=== PATIENT | female | born 1990 | race Caucasian/White ===

== ENCOUNTER 2016-12-18 10:30 | Emergency (ER) | payer OTHER ==
[~2016-12-18] VITALS: Ht 160 cm; Wt 58.0 kg
[~2016-12-18 10:30] MED LIST: IBUP600 PO; OXYC1SOL5 PO; PREN1TAB30 PO
[2016-12-18 10:36] VITALS: BP 110/69; PULSE 84; RESP 16; TEMP 98.5; O2SAT 100
[2016-12-18 10:54] LABS: BLOOD, URINE NEG (NEG); GLUCOSE,URINE NEG (NEG); KETONE, URINE NEG (NEG); NITRITE,URINE NEG (NEG); PH, URINE 5.5 (5.0-8.5)
--- NOTE | 2016-12-18 10:59 | PD ---
HPI Chief Complaint: [employer] Problem/Complaint Time Seen by Provider: 10:58 Travel History International Travel<30 days: No Contact w/Intl Traveler<30days: No Traveled to known affect area: No History of Present Illness HPI 26-year-old female came to the emergency room with history of suprapubic pain, discomfort and cramps for past 3 weeks. Denies dysuria, fever or chills. Says she has some vaginal discharge but does not smell foul. She does not think she is although she has been having unprotected sex. And has irregular periods. Vital signs were relatively stable. [facility] Past Medical History Narrative Medical List of her past medical, surgical, social and family history was reviewed from the nursing note. 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 Reported Meds & Prescriptions Reported Meds & Active Scripts Active Macrobid (Nitrofurantoin Monoh/Nitrofur Macro) 100 Mg Cap 100 Mg PO BID 14 Days Reported Erythromycin (Erythromycin Base) 250 Mg Cap 90 Mg PO DAILY Narrative Medication List of her home medications reviewed from the nursing note. Review of Systems Except as stated in HPI: all other systems reviewed are Neg Physical Exam Narrative GENERAL: Awake, alert, no obvious distress SKIN: Focused skin assessment warm/dry. HEAD: Atraumatic. Normocephalic. EYES: Pupils equal and round. No scleral icterus. No injection or drainage. ENT: No nasal bleeding or discharge. Mucous membranes pink and moist. NECK: Trachea midline. No JVD. CARDIOVASCULAR: Regular rate and rhythm. No murmur appreciated. RESPIRATORY: No accessory muscle use. Clear to auscultation. Breath sounds equal bilaterally. GASTROINTESTINAL: Abdomen soft, non-tender, nondistended. Hepatic and splenic margins not palpable. : External inspection was within normal limit. Speculum exam was done and thick whitish discharge. Discharge was not foul-smelling. No CMT or adnexal tenderness. MUSCULOSKELETAL: No obvious deformities. No clubbing. No cyanosis. No edema. NEUROLOGICAL: Awake and alert. No obvious cranial nerve deficits. Motor grossly within normal limits. Normal speech. PSYCHIATRIC: Appropriate mood and affect; insight and judgment normal. Data Data Last Documented VS Orders Urinalysis - C+S If Indicated (12/18/16 10:34) Ed Urine Pregnancytest Poc (12/18/16 10:34) Gc And Chlamydia Pcr (12/18/16 11:10) Wet Prep Profile (12/18/16 11:10) Urine Culture (12/18/16 10:40) Nitrofurantoin Monohyd Macrocr (Macrobid (12/18/16 12:00) Labs [facility] Medical Decision Making Medical Screen Exam Complete: Yes Emergency Medical Condition: Yes Differential Diagnosis Cystitis, STD Narrative Course 11:57 AM given my exam suspicion for STD is low. I'm comfortable discharging her home before the results of back. I have also given her a dose of Macrobid here and prescription to go home with. Procedures EKG Prior to Arrival: No Diagnosis Primary Impression: Cystitis Referrals: Primary Care Physician 2 days Additional Instructions: Please return to the ER if the condition worsen or any other new concerns. Otherwise follow-up with your primary care. Please take the medication as per the prescription direction. Drink lots of fluid and cranberry juice. Med/Other Pt SpecificInfo: Prescription(s) given Scripts Nitrofurantoin Monohydrate Macrocrystals (Macrobid)100 Mg [id number] Mg PO BID 14 Days Ref 0 Prov:Chuyita Whitman MD 12/18/16 Disposition: 01 DISCHARGE HOME Condition: Stable Chuyita Whitman MD Dec 18, 2016 10:59 Urine Leukocyte Esterase TRACE Urine WBC 0-2 /hpf Urine Squamous Epithelial > 8 /hpf Cells Urine Bacteria MOD /hpf Microscopic Urinalysis Comment CULTURE INDICATED Urine Collection Time 10:40 [facility] Medical Decision Making Medical Screen Exam Complete: Yes Emergency Medical Condition: Yes Differential Diagnosis Cystitis, STD Narrative Course 11:57 AM given my exam suspicion for STD is low. I'm comfortable discharging her home before the results of back. I have also given her a dose of Macrobid here and prescription to go home with. Procedures EKG Prior to Arrival: No Diagnosis Primary Impression: Cystitis Referrals: Primary Care Physician 2 days Additional Instructions: Please return to the ER if the condition worsen or any other new concerns. Otherwise follow-up with your primary care. Please take the medication as per the prescription direction. Drink lots of fluid and cranberry juice. Med/Other Pt SpecificInfo: Prescription(s) given Scripts Nitrofurantoin Monohydrate Macrocrystals (Macrobid)100 Mg [id number] Mg PO BID 14 Days Ref 0 Prov:Chuyita Whitman MD 12/18/16 Disposition: 01 DISCHARGE HOME Condition: Stable Chuyita Whitman MD Dec 18, 2016 10:59
[2016-12-18] MEDS ORDERED: ERYT250C12 PO (11:02)
[2016-12-18 11:12] LABS: METHOD OF COLLECTION CLEAN CATCH; URINE COLOR YELLOW (YELLW/STRAW)
[2016-12-18 11:13] LABS: BACTERIA, URINE MOD /hpf; COMMENT (UR) CULTURE INDICATED; CULTURE IF INDICATED CULTURE INDICATED; SQUAMOUS EPITHELIAL CELL URINE > 8 /hpf (0-5); WBC, URINE 0-2 /hpf (0-5)
[2016-12-18] MEDS ORDERED: MACR100C2 PO (11:59)
[2016-12-18] MEDS ORDERED: NITROFURANTOIN MONOHYD MACROCR 100 MG CAP PO ONE (12:00)
[2016-12-18 12:02] VITALS: BP 110/70; PULSE 80; RESP 16; O2SAT 100
[2016-12-18 17:38] LABS: CHLAMYDIA PCR NOT DETECTED (NOT DETECT); NEISSERIA PCR NOT DETECTED (NOT DETECT)
== END 2016-12-18 12:11 | disposition home or self-care (01) ==
LOC: PHED 10:30
DX: N30.90 Cystitis, unspecified without hematuria (principal); N89.8 Other specified noninflammatory disorders of vagina; Z86.59 Personal history of other mental and behavioral disorders
CPT/HCPCS: 81001; 84703; 87086; 87210; 87491; 87591; 99283

== ENCOUNTER 2016-12-24 15:13 | Emergency (ER) | payer OTHER ==
[~2016-12-24] VITALS: Ht 160 cm; Wt 58.2 kg
[~2016-12-24 15:13] MED LIST changes: +ERYT250C12 PO; -IBUP600 PO; +MACR100C2 PO; -OXYC1SOL5 PO; -PREN1TAB30 PO
[2016-12-24 15:18] VITALS: BP 104/75; PULSE 81; RESP 16; TEMP 98.4; O2SAT 96
[2016-12-24] MEDS ORDERED: ORPH100T99 PO (15:58)
[2016-12-24] MEDS ORDERED: IBUP-232 PO (15:58)
--- NOTE | 2016-12-24 15:59 | PD ---
HPI Chief Complaint: Pain: Acute or Chronic Time Seen by Provider: 15:35 Travel History International Travel<30 days: No Contact w/Intl Traveler<30days: No Traveled to known affect area: No History of Present Illness HPI The patient is a 26-year-old female who presents emergency department for back pain. The patient states she was evaluated in the emergency department last week for back pain. The back pain is located in the lower lumbar region, radiates up to the lower thoracic region, is bilateral, worse when she is standing, walking, and picking up her child. Patient states she was evaluated in the emergency department last week and underwent pelvic examination and was prescribed antibiotics. The patient has been taking the nitrofurantoin as directed, however, her back pain persists. She denies any nausea, vomiting, diarrhea, or constipation. The patient denies any current vaginal discharge, is currently on her menstrual cycle. She denies any dysuria , frequency, urgency, or hematuria. The patient denies any history of similar symptoms secondary to her menstrual cycle in the past. The patient does have a history of post fracture in the past which healed without surgical intervention. She denies any radiculopathy down the legs. The patient denies any history of IVDA or dialysis. She does state she had a fever and chills earlier today, fever was high as 101.3. 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 Reported Meds & Prescriptions Reported Meds & Active Scripts Active Orphenadrine CR (Orphenadrine Citrate) 100 Mg Tab 100 Mg PO Q12HR Ibuprofen 600 Mg Tab 600 Mg PO Q6H PRN Macrobid (Nitrofurantoin Monoh/Nitrofur Macro) 100 Mg Cap 100 Mg PO BID 14 Days Reported Erythromycin (Erythromycin Base) 250 Mg Cap 90 Mg PO DAILY Review of Systems Except as stated in HPI: all other systems reviewed are Neg General / Constitutional: Positive: Fever, Chills Cardiovascular: No: Chest Pain or Discomfort Respiratory: No: Shortness of Breath Gastrointestinal: No: Nausea, Vomiting, Diarrhea, Abdominal Pain Genitourinary: No: Urgency, Frequency, Dysuria, Hematuria, Pelvic Pain Musculoskeletal: Positive: Pain (back pain), No: Myalgias, Arthralgias Skin: No Rash Physical Exam Narrative GENERAL: Awake, alert, pleasant 26-year-old female who appears her stated age and is in no acute respiratory distress. SKIN: Focused skin assessment warm/dry. HEAD: Atraumatic. Normocephalic. EYES: Pupils equal and round. No scleral icterus. No injection or drainage. ENT: No nasal bleeding or discharge. Mucous membranes pink and moist. NECK: Trachea midline. No JVD. CARDIOVASCULAR: Regular rate and rhythm. No murmur appreciated. RESPIRATORY: No accessory muscle use. Clear to auscultation. Breath sounds equal bilaterally. GASTROINTESTINAL: Abdomen soft, non-tender, nondistended. Negative Caba's. Negative McBurney's. No suprapubic tenderness. Back: No CVA tenderness. No tenderness of the thoracic or lumbar vertebrae. Mild tenderness of the paravertebral muscles, however, cannot reproduce with rotation, flexion, or extension. MUSCULOSKELETAL: No obvious deformities. No clubbing. No cyanosis. No edema. NEUROLOGICAL: Awake and alert. No obvious cranial nerve deficits. Motor grossly within normal limits. Normal speech. PSYCHIATRIC: Appropriate mood and affect; insight and judgment normal. Data Data Last Documented VS Vital Signs Date Time Temp Pulse Resp B/P Pulse Ox O2 Delivery O2 Flow Rate FiO2 12/24/16 15:53 81 18 12/24/16 15:18 98.4 104/75 96 Orders Urinalysis - C+S If Indicated (12/24/16 15:45) Labs Laboratory Tests Test 12/24/16 15:51 Urine Color STRAW Urine Turbidity CLEAR Urine pH 6.5 Urine Specific [place] 1.005 Urine Protein NEG mg/dL Urine Glucose (UA) NEG mg/dL Urine Ketones NEG mg/dL Urine Occult Blood LARGE Urine Nitrite NEG Urine Bilirubin NEG Urine Leukocyte Esterase NEG Urine RBC 0-3 /hpf Urine WBC 0-2 /hpf Urine Squamous Epithelial 0-5 /hpf Cells Microscopic Urinalysis Comment CULT NOT INDICATED MDM Medical Decision Making Medical Screen Exam Complete: Yes Emergency Medical Condition: Yes Medical Record Reviewed: Yes Differential Diagnosis Differential diagnoses includes back strain, compression fracture, UTI, pyelonephritis, dysmenorrhea, PID, cervicitis. Narrative Course A UA was sent to lab. I reviewed the EMR, the patient had a pelvic examination performed last week by Dr. Davis which was unremarkable except for white vaginal discharge. Wet prep was negative. Gonorrhea and chlamydia were negative. UA was negative, culture revealed mixed lorenzo, no final organism grown. The patient had a negative test at that time. The patient appears to have more muscular skeletal pain, denies any significant risk factors for epidural abscess, as she denies IVDA and dialysis. Therefore, UA will be sent to lab and patient will be treated with nonsteroidal inflammatories and muscle relaxers. The patient was signed out to the oncoming physician at 4 PM with UA pending. Diagnosis Primary Impression: Back pain Qualified Code: M54.5 - Acute bilateral low back pain without sciatica Patient Instructions: General Instructions Additional Instructions: Medications as directed. Follow-up with her primary physician. Return if symptoms worsen or progress. Med/Other Pt SpecificInfo: Prescription(s) given Scripts Orphenadrine ER 12 HR (Orphenadrine CR)100 Mg [id number] Mg PO Q12HR #20 TAB Ref 0 Prov:Satya Jose MD 12/24/16 Ibuprofen 600 Mg [id number] Mg PO Q6H PRN (Pain/Inflammation) #20 TAB Ref 0 Prov:Satya Jose MD 12/24/16 Disposition: 01 DISCHARGE HOME Condition: Stable Satya Jose MD Dec 24, 2016 15:59
[2016-12-24 16:08] LABS: BLOOD, URINE LARGE (NEG); GLUCOSE,URINE NEG (NEG); KETONE, URINE NEG (NEG); NITRITE,URINE NEG (NEG); PH, URINE 6.5 (5.0-8.5)
[2016-12-24 16:40] LABS: URINE COLOR STRAW (YELLW/STRAW)
[2016-12-24 16:41] LABS: COMMENT (UR) CULT NOT INDICATED; CULTURE IF INDICATED CULT NOT INDICATED; RBC, URINE 0-3 /hpf (0-3); SQUAMOUS EPITHELIAL CELL URINE 0-5 /hpf (0-5); WBC, URINE 0-2 /hpf (0-5)
--- NOTE | 2016-12-24 17:05 | PD ---
Physical Exam Date Seen by Provider: Dec 24, 2016 Time Seen by Provider: 17:04 Narrative 26-year-old female complaining of back pain. She was seen last week for back pain and diagnosed with UTI with urine was somewhat equivocal. She presents now with pain again. She was seen initially by Dr. Jose who ordered a urinalysis. The urine is negative for infection is impression was that this was musculoskeletal pain. She'll be released with prescription for anti- inflammatory medication and muscle relaxer Data Data Last Documented VS Vital Signs Date Time Temp Pulse Resp B/P Pulse Ox O2 Delivery O2 Flow Rate FiO2 12/24/16 15:53 81 18 12/24/16 15:18 98.4 104/75 96 Orders Urinalysis - C+S If Indicated (12/24/16 15:45) Labs Laboratory Tests Test 12/24/16 15:51 Urine Color STRAW Urine Turbidity CLEAR Urine pH 6.5 Urine Specific [place] 1.005 Urine Protein NEG mg/dL Urine Glucose (UA) NEG mg/dL Urine Ketones NEG mg/dL Urine Occult Blood LARGE Urine Nitrite NEG Urine Bilirubin NEG Urine Leukocyte Esterase NEG Urine RBC 0-3 /hpf Urine WBC 0-2 /hpf Urine Squamous Epithelial 0-5 /hpf Cells Microscopic Urinalysis Comment CULT NOT INDICATED MDM Medical Record Reviewed: No Supervised Visit with BLAZE: No Differential Diagnosis Differential includes UTI, musculoskeletal back pain Narrative Course Urine is negative for infection. She'll be treated for musculoskeletal pain Diagnosis Primary Impression: Back pain Qualified Code: M54.5 - Acute bilateral low back pain without sciatica Patient Instructions: General Instructions Departure Forms: Tests/Procedures Additional Instruction: Medications as directed. Follow-up with her primary physician. Return if symptoms worsen or progress. Scripts Orphenadrine ER 12 HR (Orphenadrine CR)100 Mg [id number] Mg PO Q12HR #20 TAB Ref 0 Prov:Satya Jose MD 12/24/16 Ibuprofen 600 Mg [id number] Mg PO Q6H PRN (Pain/Inflammation) #20 TAB Ref 0 Prov:Satya Jose MD 12/24/16 Disposition: 01 DISCHARGE HOME Condition: Stable Vega Garcia MD Dec 24, 2016 17:05
== END 2016-12-24 17:19 | disposition home or self-care (01) ==
LOC: PHED 15:13
DX: M54.5 Low back pain (principal); M54.6 Pain in thoracic spine
CPT/HCPCS: 81001; 99283